=== PATIENT | male | born 1985 | race Hispanic/Latino ===

== ENCOUNTER 2018-12-24 10:31 | Emergency (ER) | payer SELFPAY ==
--- NOTE | 2018-12-24 11:35 | RAD ---
RIGHT ANKLE THREE VIEWS: HISTORY: Injury. Right ankle pain. FINDINGS: The ankle mortise is maintained. No acute fracture or dislocation is identified. POS: OFF
== END 2018-12-24 11:29 | disposition home or self-care (01) ==
LOC: ERS 10:31
DX: S93.401A Sprain of unspecified ligament of right ankle, initial encounter (principal); S80.10XA Contusion of unspecified lower leg, initial encounter; F17.210 Nicotine dependence, cigarettes, uncomplicated; V49.9XXA Car occupant (driver) (passenger) injured in unspecified traffic accident, initial encounter; Y93.02 Activity, running